=== PATIENT | male | born 1975 | race Caucasian/White ===

== ENCOUNTER 2016-11-03 12:30 | Emergency (ER) | payer SELFPAY ==
--- NOTE | 2016-11-03 12:50 | Emergency Department Record ---
History of Present Illness - General Chief Complaint: Chest Pain Stated Complaint: RIB/STERNUM PAIN Time Seen by Provider: 11/03/16 12:47 Source: Patient Mode of Arrival: Ambulatory Limitations: No limitations - History of Present Illness Initial Comments: 41 yo male presents with chest wall and rib pain after tripping at 2am landing on a kitchen counter. The pain is over the right mid upper chest to the sternum. He has pain with moving. No bruising or abrasions. Onset/Timin -: Days(s) Onset: Other Pain Location: Right chest Pain Radiation: None Severity: Moderate Severity scale (1-10): 10 Consistency: Constant Improves With: Nothing Worsens With: Exertion, Movement Treatments Prior to Arrival: None - Related Data Previous Rx's Medication Instructions Recorded Hydrocodone/Acetaminophen [[place] 1 tab PO Q6H PRN #20 tab 11/03/16 5mg/325mg] Ibuprofen [Motrin 600Mg] 600 mg PO Q6H #30 tablet 11/03/16 Lidocaine Patch [Lidoderm] 1 ea TOP 10 #14 patch 11/03/16 Allergies Allergy/AdvReac Type Severity Reaction Status Date / Time No Known Drug Allergies Allergy Verified 08/03/15 13:16 Travel Screening - Travel/Exposure Within Last 30 Days Have you traveled within the last 30 days?: No - Travel/Exposure Within Last Year Have you traveled outside the [place] in the last year?: No - Additonal Travel Details Have you been exposed to anyone with a communicable illness?: No - Travel Symptoms Symptom Screening: None Review of Systems Constitutional: Denies: Chills, Fever, Malaise, Weakness Eyes: Denies: Eye discharge, Eye pain, Photophobia, Vision change ENT: Denies: Congestion, Ear pain, Epistaxis, Throat pain Respiratory: Denies: Cough, Dyspnea, Hemoptysis, Stridor, Wheezes Cardiovascular: Reports: As per HPI, Chest pain. Denies: Palpitations, Syncope Endocrine: Denies: Fatigue, Polydipsia, Polyuria Gastrointestinal: Denies: Abdominal pain, Constipation, Nausea, Vomiting Genitourinary: Denies: Dysuria, Frequency, Hematuria, Urgency Musculoskeletal: Denies: Arthralgia, Back pain, Joint swelling, Myalgia, Neck pain Skin: Denies: Bruising, Change in color Neurological: Denies: Confusion, Headache Psychiatric: Denies: Anxiety Hematological/Lymphatic: Denies: Blood Clots, Easy bleeding, Easy bruising, Swollen glands Past Medical History - SOCIAL HISTORY Smoking Status: Current every day smoker Alcohol Use: Occassional Drug Use: None - RESPIRATORY Hx Respiratory Disorders: No - CARDIOVASCULAR Hx Cardio Disorders: Yes Hx Hypertension: Yes - NEURO Hx Neuro Disorders: No - GI Hx GI Disorders: Yes Hx Reflux: Yes - Hx Genitourinary Disorders: No - ENDOCRINE Hx Endocrine Disorders: No - MUSCULOSKELETAL Hx Musculoskeletal Disorders: Yes Hx Back Injury: Yes - PSYCH Hx Psych Problems: No - HEMATOLOGY/ONCOLOGY Hx Hematology/Oncology Disorders: No Family Medical History Any Significant Family History?: No Physical Exam - General General Appearance: Alert, Oriented x3, Cooperative, No acute distress Limitations: No limitations - Head Head exam: Atraumatic, Normocephalic, Normal inspection - Eye Eye exam: Normal appearance, PERRL. negative: Conjunctival injection, Periorbital swelling, Scleral icterus - ENT ENT exam: Normal exam Ear exam: Normal external inspection Nasal Exam: Normal inspection Mouth exam: Normal external inspection Teeth exam: Normal inspection Throat exam: Normal inspection - Neck Neck exam: Normal inspection - Respiratory Respiratory exam: Normal lung sounds bilaterally, Chest wall tenderness. negative: Respiratory distress, Rhonchi, Stridor, Wheezes - Cardiovascular Cardiovascular Exam: Regular rate, Normal rhythm, Normal heart sounds - GI/Abdominal GI/Abdominal exam: Soft. negative: Tenderness - Rectal Rectal exam: Deferred - exam: Deferred - Extremities Extremities exam: Normal inspection, Full ROM, Normal capillary refill. negative: Tenderness Image of Full Body: 1 - tender to palpation, no deformity, no bruising, no crepitus, clear lungs, pain with deep inspiration but not labored - Back Back exam: Reports: Normal inspection, Full ROM. Denies: CVA tenderness (R), CVA tenderness (L), Muscle spasm, Rash noted, Tenderness - Neurological Neurological exam: Alert, Normal gait, Oriented X3, Reflexes normal - Psychiatric Psychiatric exam: Normal affect, Normal mood - Skin Skin exam: Dry, Intact, Normal color, Warm Course Vital Signs 03/14/17 12:36 Temperature 97.7 F Pulse Rate 95 H Respiratory 18 Rate Blood Pressure 147/93 Pulse Ox 98 - Reevaluation(s) Reevaluation #1: XR demonstrated Fx of the 4th and 5th rib. No pneumothorax. The patient is not hypoxic or in respiratory distress IS will be taught and provided He will be provided analgesia and instructions for home care and reasons to return to the ER 11/03/16 13:42 11/03/16 18:41 Reevaluation #2: Respiratory asked to teach and dispense IS 11/03/16 13:44 11/03/16 18:41 Disposition Disposition: Discharge Clinical Impression: Rib fractures Qualifiers: Encounter type: initial encounter Rib fracture type: multiple ribs Fracture type: closed Laterality: right Qualified Code(s): S22.41XA - Multiple fractures of ribs, right side, initial encounter for closed fracture Disposition: Home, Self-Care Condition: (1) Good Instructions: Rib Fracture (ED) Additional Instructions: Use the incentive spirometer as directed Return if you pain is not well controlled, fever, cough, short of breath No lifting Call your doctor for close follow up this week Prescriptions: Lidocaine Patch [Lidoderm] 1 ea TOP 10 #14 patch Ibuprofen [Motrin 600Mg] 600 mg PO Q6H #30 tablet Hydrocodone/Acetaminophen [[place] 5mg/325mg] 1 tab PO Q6H PRN #20 tab PRN Reason: Pain - General Forms: Patient Portal Access Time of Disposition: 13:47
[2016-11-03] MEDS ORDERED: HYDROCODONE/APAP 5/325MG TABLET PO ONE (12:59)
[2016-11-03] MEDS ORDERED: IBUPROFEN 600 MG TABLET PO ONE (12:59)
[2016-11-03] MEDS ORDERED: LIDOCAINE 5% PATCH TOP ONE (13:43)
--- NOTE | 2016-11-09 14:11 | RADIOLOGY REPORT ---
EXAM: CHEST AND RIGHT RIB SERIES HISTORY: RIB PAIN. TECHNIQUE: Frontal view of the chest and four views of the right ribs were obtained. Comparison: Prior chest and left rib series dated 08/03/15. FINDINGS: The heart size is normal. Osteopenia. The lungs are clear. There is no pneumothorax. There are nondisplaced/minimally displaced fracture deformities of the lateral right fourth and fifth ribs. Adjacent soft tissues are unremarkable. IMPRESSION: LATERAL RIGHT FOURTH AND FIFTH RIB FRACTURES. OSTEOPENIA. THE LUNGS ARE CLEAR. JOB NUMBER: [id number] [facility]
== END 2016-11-03 14:42 | disposition home or self-care (01) ==
LOC: ER 12:30
DX: S22.41XA Multiple fractures of ribs, right side, initial encounter for closed fracture (principal); W18.09XA Striking against other object with subsequent fall, initial encounter; I10 Essential (primary) hypertension; F17.210 Nicotine dependence, cigarettes, uncomplicated
CPT/HCPCS: 94010; 99283; 99284

== ENCOUNTER 2018-09-29 09:41 | Emergency (ER) | payer SELFPAY ==
[2018-09-29] MEDS ORDERED: MORPHINE SULFATE 10 MG/ML VIAL IVP ONE (09:51)
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
[2018-09-29 10:10] LABS: BASO % 0.9 % (0-6); EOS % 1.3 % (0-6); GRAN % 60.8 % (47-80); HEMATOCRIT 47.6 % (42.0-52.0); HEMOGLOBIN 16.2 gm/dl (14.0-18.0); LYMPH % 24.4 % (16-45); MEAN CELL VOLUME 96.2 fl (81-97); MEAN CORPUSCULAR HEMOGLOBIN 32.7 pg (27-33); MEAN PLATELET VOLUME 9.6 fl (7.4-10.4); MONO % 12.6 % (0-9); PLATELET COUNT 459 K/uL (130-400); RED BLOOD COUNT 4.95 M/uL (4.40-5.70); RED CELL DISTRIBUTION WIDTH 13.9 % (11.5-14.5); WHITE BLOOD COUNT W/O DIFF 6.9 K/uL (4.2-12.2)
[2018-09-29 10:19] LABS: BLOOD UREA NITROGEN 6 mg/dL (6-20); CREATININE 0.8 mg/dL (0.7-1.2); EST GLOMERULAR FILTRATION RATE > 60 mL/min; TOTAL PROTEIN 8.6 g/dL (6.6-8.7)
[2018-09-29 10:21] LABS: GLUCOSE,RANDOM 98 mg/dL (74-109)
[2018-09-29 10:24] LABS: ALB/GLOB RATIO 1.4 (1.1-1.8); ALKALINE PHOSPHATASE 84 U/L (55-149); ALT/SGPT 39 U/L (<41); AST/SGOT 50 U/L (10.0-50.0)
[2018-09-29] MEDS ORDERED: KETOROLAC 30 MG/ML VIAL IVP ONE (11:21)
== END 2018-09-29 12:15 | disposition home or self-care (01) ==
LOC: ER 09:41
DX: S01.121A Laceration with foreign body of right eyelid and periocular area, initial encounter (principal); S22.42XA Multiple fractures of ribs, left side, initial encounter for closed fracture; S00.83XA Contusion of other part of head, initial encounter; I10 Essential (primary) hypertension; R10.12 Left upper quadrant pain; Y04.0XXA Assault by unarmed brawl or fight, initial encounter; F17.210 Nicotine dependence, cigarettes, uncomplicated
CPT/HCPCS: 70486; 71260; 74177; 80053; 85025; 94010; 96374; 96375; 99284; J1885; J2270